=== PATIENT | female | born 1945 | race Caucasian/White ===

== ENCOUNTER 2019-06-09 13:31 | Outpatient (CLI) | payer MEDICARE ==
--- NOTE | 2019-06-09 14:45 | MMO ---
Bilateral MAMMO Bilat Diag [facility]. CLINICAL HISTORY: Patient is 73 years old and is seen for diagnostic exam. The patient has no family history of breast cancer. The patient has no personal history of cancer. VIEWS: The views performed were: bilateral craniocaudal with tomosynthesis; bilateral mediolateral oblique with tomosynthesis; and bilateral mediolateral with tomosynthesis. FILMS COMPARED: The present examination has been compared to prior imaging studies performed on 08/03/2015 and 08/29/2017, and at [facility] on 06/09/2019. This study has been interpreted with the assistance of computer-aided detection. MAMMOGRAM FINDINGS: There are scattered fibroglandular densities. Benign calcifications are noted bilaterally. Ultrasound of the palpable findings showed no abnormality. There are no suspicious masses, suspicious calcifications, or new areas of architectural distortion. IMPRESSION: THERE IS NO MAMMOGRAPHIC EVIDENCE OF MALIGNANCY. A ROUTINE FOLLOW-UP MAMMOGRAM IN 1 YEAR IS RECOMMENDED. THE RESULTS OF THIS EXAM WERE SENT TO THE PATIENT. ACR BI-RADS Category 2 - Benign finding MAMMOGRAPHY NOTE: 1. A negative mammogram report should not delay a biopsy if a dominant of clinically suspicious mass is present. 2. Approximately 10% to 15% of breast cancers are not detected by mammography. 3. Adenosis and dense breasts may obscure an underlying neoplasm. Reported by: JULI CHURCH MD Electonically Signed: [id number]
--- NOTE | 2019-06-09 15:36 | ULT ---
BILATERAL BREAST ULTRASOUND: HISTORY: Palpable abnormalities at the 7 o'clock position of the left breast and at the 11 through 1 o'clock p osition of the right breast. CORRELATION: Mammogram from the same day. FINDINGS: Sonographic evaluation at the 7 o'clock position of the left breast and the 11 o'clock through 1 o'cl ock position of the right breast demonstrates no abnormality. IMPRESSION: BI-RADS category 2 - benign findings. Return to annual mammographic screening. POS: OFF
--- NOTE | 2019-06-09 15:53 | BD ---
Exam: DEXA Bone Density 06/09/19 HISTORY: Screening study. Postmenopausal female. COMPARISON: None. FINDINGS: Lumbar Spine: BMD (g/cm2) T-SCORE Z-SCORE L1 0.793 -1.8 0.2 L2 0.902 -1.1 1.0 L3 1.064 -0.2 2.1 L4 1.127 0.6 3.0 L1-L4 0.980 -0.6 1.6 Femoral Neck: 0.826 -0.2 1.7 Total Femur: 0.885 -0.5 1.1 Impression:Lumbar spine: WHO classification: Normal. Fracture risk is not increased. Femoral neck: WHO classification: Normal. Ten year fracture risk: FRAX not reported because all T-Sco res are above -1.0. POS: OFF
== END 2019-06-09 13:32 | disposition home or self-care (01) ==
LOC: BICMAMMO 13:31
PROVIDERS: ATTEND Physician Assistant
DX: Z13.820 Encounter for screening for osteoporosis (principal); Z78.0 Asymptomatic menopausal state; N63.11 Unspecified lump in the right breast, upper outer quadrant; N63.20 Unspecified lump in the left breast, unspecified quadrant
CPT/HCPCS: 76642 ×2; 77066; 77080; G0279

== ENCOUNTER 2021-12-06 14:22 | Outpatient (CLI) | payer MEDICARE ==
[2021-12-06 15:19] LABS: #Basophils 0.1 10x3/uL (0.0-0.2); #Monocytes 0.3 10x3/uL (0.0-1.1); #Neutrophils 2.5 10x3/uL (1.5-8.4); %Eosinophils 0.8 % (0.0-6.0); %Lymphocytes 39.1 % (18.0-47.0); %Monocytes 7.1 % (0.0-10.0); %Neutrophils 51.8 % (40.0-75.0); Hemoglobin 13.8 g/dL (12.0-15.5); Mean Corpuscular HGB CONC 34.8 g/dL (32.0-36.0); Mean Corpuscular Hemoglobin 30.1 pg (27.0-33.0); Mean Corpuscular Volume 86.3 fl (81.6-98.3); Mean Platelet Volume 8.6 fl (7.4-10.4); Platelet Count 289 10x3/uL (150-450); RBC Distribution Width 13.1 % (11.5-14.5); Red Blood Cell (RBC) Count 4.59 10x6/uL (3.90-5.03); White Blood Cell (WBC) Count 4.8 10x3/uL (3.5-10.5)
[2021-12-06 15:32] LABS: Anion Gap 16 mmol/L (10-20); BUN (Urea Nitrogen) 14 mg/dL (9.8-20.1); Calc. Creatinine Clearance 0 mL/min (70-130); Calcium 9.6 mg/dL (7.8-10.44); Carbon Dioxide 25 mmol/L (23-31); Chloride 102 mmol/L (98-107); Glucose 105 mg/dL (83-110); Potassium 3.6 mmol/L (3.5-5.1); Sodium 139 mmol/L (136-145)
[2021-12-07 00:54] LABS: SARS-CoV-2 PCR by NAA Not Detected (NotDetected)
== END 2021-12-06 14:23 | disposition home or self-care (01) ==
LOC: LABBT 14:22
PROVIDERS: ATTEND Internal Medicine Cardiovascular Disease
DX: Z01.812 Encounter for preprocedural laboratory examination (principal); Z20.822 Contact with and (suspected) exposure to COVID-19
CPT/HCPCS: 80048; 85025; U0003; U0005

== ENCOUNTER → 2021-12-10 | Day surgery (SDC) | payer MEDICARE ==
[2021-12-07 11:03] VITALS: BMI 18.6
== END | disposition home or self-care (01) ==
LOC: SDC 05:56
PROVIDERS: ATTEND Internal Medicine Cardiovascular Disease
DX: I48.19 Other persistent atrial fibrillation (principal); R00.1 Bradycardia, unspecified; K21.9 Gastro-esophageal reflux disease without esophagitis; I10 Essential (primary) hypertension; Z53.8 Procedure and treatment not carried out for other reasons; Z79.01 Long term (current) use of anticoagulants; Z79.899 Other long term (current) drug therapy
CPT/HCPCS: 93005; 93010

== ENCOUNTER 2022-02-25 11:06 | Outpatient (CLI) | payer MEDICARE | END 2022-02-25 11:07 | disposition home or self-care (01) | LOC: BICMAMMO 11:06 | PROVIDERS: ATTEND Family Medicine | DX: Z12.31 Encounter for screening mammogram for malignant neoplasm of breast (principal) | CPT/HCPCS: 77063; 77067 ==